=== PATIENT | male | born 1950 | race Caucasian/White ===

== ENCOUNTER 2018-02-22 09:00 | Inpatient (IN) | payer OTHER, MEDICARE ==
[2018-02-22 09:43] VITALS: BMI 31.9
[2018-02-26] MEDS ORDERED: CEFAZOLIN/Water 2 GM/20 ML SYRINGE ONE (05:59)
[2018-02-26] MEDS ORDERED: Vancomycin HCl 1.5 GM in Sodium Chloride 0.9% 250 ML 300 ML IVPB SCH ×2 (06:00→18:00)
[2018-02-26] MEDS ORDERED: Sodium Chloride 0.9% 100 ML ONE (06:00)
[2018-02-26] MEDS ORDERED: Fentanyl 100 MCG/2 ML VIAL ONE ×5 (06:14→11:07)
[2018-02-26] MEDS ORDERED: Midazolam HCl 2 mg/2 ml Vial ONE ×2 (06:14→06:37)
[2018-02-26] MEDS ORDERED: Bupivacaine PF 0.5% 30 ML VIAL ONE (06:47)
--- NOTE | 2018-02-26 11:04 | OP ---
DATE OF PROCEDURE: 02/26/2018 PREOPERATIVE DIAGNOSIS: Left knee failed unicompartmental knee replacement. POSTOPERATIVE DIAGNOSIS: Left knee failed unicompartmental knee replacement. PROCEDURE PERFORMED: Conversion of left knee unicompartmental knee replacement to left knee total kn ee replacement including removal of hardware. SURGEON: Butch Adames M.D. HELP DESK OPERATOR: Miguel Leahy M.D. BLOOD LOSS: Minimal. COMPLICATIONS: None. DISPOSITION: He did go to recovery room in stable condition. ANESTHESIA: He did have a preoperative block as well as a general anesthetic. IMPLANTS: A [employer] Triathlon knee system, the femur a size 5 cruciate retaining. We used a size 5 baseplate with a 50 mm stem. We did use a 5 mm medial augment and our poly was a 16 mm CS poly X3 in sert. The patella was a 32 x 10 asymmetric X3 patella. CONDITION: He did go to the recovery room in stable condition. INDICATIONS: A 67-year-old male who comes in complaining of left knee pain. He had a unicompartment al knee replacement done about 4 years ago and has never been without discomfort. After appropriate consent forms were explained and signed, he was taken back to the operating room at this time was giv en general anesthetic. Once anesthesia was appropriate, the left lower extremity was prepped and mansi ped in the standard surgical fashion. Limb was exsanguinated, tourniquet was taken up to 300 mmHg. The 10 blade was used then, used the previous incision, extending this proximally. Bovie was used to coagulate any brisk venous bleeding. New blade was used to make a medial parapatellar arthrotomy. At this time, we were able to dissect soft tissue medially to gain access towards the medial corner. Excess fat pad was removed. Patella was everted, knee was flexed up. At this time, we attached the navigation jig onto the femur. We navigated the femur with the metal in place and went to make our cut. We did make the lateral femoral condyle cut. We were unable to do the medial femoral condyle s econdary to the metal being in place and at this time a reciprocating saw and osteotomes were used to remove this femur. Once that was done, the medial cut was then made. We then went ahead and placed our sizing jig onto the knee, sized it to be 5, a 4-in-1 cutting block was then applied and pinned. Anterior, posterior, and chamfer cuts were made. This gave a nice preparation of our femur with no significant areas that needed any type of metal augmentation. Once this was done, we then gained acc ess to our tibia. We then again navigated our tibia with the plastic in place and set our jig, takin g 9 mm off the affected side which was 0 medially. We then made our lateral cut and this took it moise n just to the level of the plastic not even the level of the metal. We then added 4 mm to this and w e then had to use a reciprocating saw and osteotome to remove our metal and plastic from the uni. Ag ain, at this time, we then had removed 13 laterally and more than that medially. We then removed loo se bony debris. The back of the femur was evaluated and there was some small osteophytes that were r emoved with a rongeur. Otherwise, no significant bony resection was needed posteriorly. Any remaini ng meniscus was removed as well as soft tissue. At this time, we trialed with the 5 mm augment and a size 5 baseplate. We pinned it. Once we got to the appropriate rotation and placed our femur in. We then trialed up to a 16, the 16 I felt gave us the best stability anterior and posterior throughou t full range of motion as well as medial and lateral, and at this time, we then used two towel clips and a saw to cut our patella, the 32 mm trial was used and it sat nicely in the trochlear groove. We then removed the patella, flexed the knee up again drilled our femoral lug nuts, removed our femur, gained access to our tibia and at this time we punched and reamed for the boss and then reamed for th e 50 mm stem. At this time, all components were removed and the knee was thoroughly irrigated and dr delgado while cement was mixed on the back table. We did next 2 batches of cement. We then placed a jason ent restrictor in the tibial canal. We then applied our cement and our real tibia with the 5 mm augm ent. Once all excess bone cement was removed, the plastic was inserted and then the femur. This was then held out in full extension while the cement dried. All excess bone cement being removed from o ff the femur, tibia, and the patella. We thoroughly irrigated and dried. We then used multiple inte rrupted #2 Vicryls followed by a running large Stratafix, the 0 Stratafix, the 3-0 Stratafix and Surg iSeal skin glue on top. Once the glue had dried, a bulky sterile dressing was applied to the left lo wer extremity. Tourniquet was let down. Toes pinked up nicely. The patient was awakened. He was t aken to the recovery room in stable condition. All counts were correct at the end of the case. He d id receive preoperative IV antibiotics.
[2018-02-26] MEDS ORDERED: Zolpidem Tartrate 5 MG TAB PO PRN ×2 (12:32→13:15)
[2018-02-26] MEDS ORDERED: HYDROcodone/Acetaminophen 10/325 mg Tablet PO PRN ×3 (12:32→13:01)
[2018-02-26] MEDS ORDERED: Promethazine HCl 25 MG/ML VIAL IM PRN ×2 (12:32→13:15)
[2018-02-26] MEDS ORDERED: Ropivacaine HCl/PF 250 ML in Premix Bag 1 BAG NERVE BLCK SCH (12:32)
[2018-02-26] MEDS ORDERED: Ondansetron HCl/PF 4 MG/2 ML Vial IVP PRN ×2 (12:32→13:15)
[2018-02-26] MEDS ORDERED: traMADol HCl 50 MG TAB PO PRN ×3 (12:32→13:02)
[2018-02-26] MEDS ORDERED: Fentanyl 100 MCG/2 ML VIAL IV PRN (12:33)
[2018-02-26] MEDS ORDERED: Ropivacaine 0.5% HCl/PF (150 MG/30 ML VIAL) ONE (12:55)
[2018-02-26] MEDS ORDERED: Ondansetron HCl/PF 4 MG/2 ML Vial ONE (13:02)
[2018-02-26] MEDS ORDERED: Lidocaine 1% PF 5 ML VIAL ONE (13:02)
[2018-02-26] MEDS ORDERED: PROPOFOL 200 MG/20 ML VIAL ONE (13:02)
[2018-02-26] MEDS ORDERED: Metoclopramide HCl 10 MG/2 ML VIAL ONE (13:02)
[2018-02-26] MEDS ORDERED: Bupivacaine 0.25% HCL 30 ML VIAL ONE (13:02)
[2018-02-26] MEDS ORDERED: Fentanyl 100 MCG/2 ML VIAL SLOW IVP PRN ×2 (13:03)
[2018-02-26] MEDS ORDERED: Acetaminophen 325 MG TAB PO PRN (13:15)
[2018-02-26] MEDS ORDERED: diphenhydrAMINE 25 MG CAP PO PRN (13:15)
[2018-02-26] MEDS ORDERED: Acetaminophen 1,000 MG in Premix Bag 1 BAG IVPB SCH (13:15)
[2018-02-26] MEDS: HYDROcodone/Acetaminophen 10/325 mg Tablet PO PRN ×2 (13:40→20:43)
[2018-02-26] MEDS ORDERED: CEFAZOLIN/Water 2 GM/20 ML SYRINGE SLOW IVP SCH (14:00)
[2018-02-26] MEDS: Ketorolac Tromethamine 30 MG/ML VIAL IM/IV SCH ×2 (14:25→20:44)
[2018-02-26] MEDS: Sodium Chloride 0.9% 1,000 ML IV SCH (14:25)
--- NOTE | 2018-02-26 14:51 | RAD ---
TWO VIEWS OF LEFT KNEE: INDICATION: Postop. COMPARISON: None. FINDINGS: There is a left total knee prosthesis that projects in the expected position. A small focus of methy l methacrylate is suspected within the posterolateral aspect of the knee joint measuring about 7.6 mm . There is intraarticular and paraarticular gas consistent with the patient's recent postop state. IMPRESSION: 1. Left total knee prosthesis. 2. Small focus of density within posterolateral aspect of the knee joint suspicious for a small focu s of polymethyl methacrylate. This may be in the region of the popliteal hiatus. POS: [facility]
[2018-02-26] MEDS ORDERED: Polyethylene Glycol 3350 17 GM Packet PO PRN (15:47)
--- NOTE | 2018-02-26 15:49 | PDOC.PN ---
- Subjective Encounter Start Date: 02/26/18 Encounter Start Time: 15:47 Patient seen and examined for med mngt. No CP/SOB/Palpitations. Follows Dr Gonzales. - Objective MAR Reviewed: Yes Vital Signs & Weight: Weight Weight 210 lb Additional Labs: Laboratory Tests 02/22/18 02/22/18 10:10 10:10 Hgb 14.0 Hct 42.5 Sodium 138 Potassium 4.2 BUN 15 Creatinine 0.83 EKG Reviewed by me: Yes ([employer] RBBB) Phys Exam - Physical Examination Constitutional: NAD Respiratory: no wheezing, no rhonchi Cardiovascular: RRR, no rub Gastrointestinal: soft, non-tender, positive bowel sounds Musculoskeletal: no edema Neurological: moves all 4 limbs Dx/Plan - Plan DVT proph w/SCDs IMPRESSION: 1. HTN 2. DM2 3. HLD 4. CAD s/p CABG 2015 5. Obesity BMI 31.9 PLAN: DC Metoprolol - Patient is currently not on Metoprolol at home Change Amlodipine to 5 mg BID (Patient takes 10 md daily) Cont Metformin - No need for sliding scale Cont Statins Cont ASA Cont other meds as below Thank you for this consultation. Will follow PRN. Full code. DPOA - spouse Review of Systems - Review of Systems Respiratory: negative: Cough, Dry, Shortness of Breath, Hemoptysis, SOB with Excertion, Pleuritic Pain, Sputum, Wheezing Cardiovascular: negative: chest pain, palpitations, orthopnea, paroxysmal nocturnal dyspnea, edema, light headedness, other Gastrointestinal: negative: Nausea, Vomiting, Abdominal Pain, Diarrhea, Constipation, Melena, Hematochezia, Other - Medications/Allergies Allergies/Adverse Reactions: Allergies Allergy/AdvReac Type Severity Reaction Status Date / Time No Known Allergies Allergy Verified 02/22/18 09:43 Medications: Current Medications Acetaminophen (Tylenol) 650 mg PO Q4H PRN PRN Reason: Headache/Fever or Pain Hydrocodone Bitart/Acetaminophen ([place] 10/325) 1 tab PO Q4H PRN PRN Reason: Pain (1-3) Hydrocodone Bitart/Acetaminophen ([place] 10/325) 2 tab PO Q4H PRN PRN Reason: PAIN (4-6) Last Admin: 02/26/18 13:40 Dose: 2 tab Hydrocodone Bitart/Acetaminophen ([place] 10/325) 1 tab PO Q4H PRN PRN Reason: Mild Pain (1-3) Hydrocodone Bitart/Acetaminophen ([place] 10/325) 2 tab PO Q4H PRN PRN Reason: Moderate Pain (4-6) Amlodipine Besylate (Norvasc) 5 mg PO BID [facility] Aspirin (Aspirin Chewable) 81 mg PO BID [facility] Atorvastatin Calcium (Lipitor) 80 mg PO HS [facility] Cefazolin Sodium (Ancef) 2 gm SLOW IVP 0800,1600,2359 [facility] Stop: 02/27/18 00:00 Clonazepam (Klonopin) 1 mg PO HS [facility] Diphenhydramine HCl (Benadryl) 25 mg PO Q6H PRN PRN Reason: Itching Fenofibrate (Tricor) 145 mg PO HS [facility] Fentanyl (Sublimaze) 50 mcg IV Q1H PRN PRN Reason: SEVERE BREAKTHROUGH PAIN Fentanyl (Sublimaze) 50 mcg SLOW IVP Q30MIN PRN PRN Reason: Moderate Pain (4-6) Fentanyl (Sublimaze) 100 mcg SLOW IVP Q1H PRN PRN Reason: Severe Pain (7-10) Ferrous Gluconate (Fergon) 324 mg PO BID[facility] Fluoxetine HCl (Prozac) 40 mg PO DAILY [facility] Hydrocodone Bitartrate/Ibuprofen (Vicoprofen 7.5/200) 1 tab PO Q4H PRN PRN Reason: Mild Pain (1-3) Hydrocodone Bitartrate/Ibuprofen (Vicoprofen 7.5/200) 2 tab PO Q4H PRN PRN Reason: Moderate Pain (4-6) Ropivacaine 250 ml/ Device 250 mls @ 0 mls/hr NERVE BLCK INF [facility] Sodium Chloride (Normal Saline 0.9%) 1,000 mls @ 100 mls/hr IV .Q10H [facility] Last Admin: 02/26/18 14:25 Dose: 1,000 mls Vancomycin HCl 1.5 gm/ Sodium (Chloride) 300 mls @ 200 mls/hr IVPB 1800 [facility] Stop: 02/26/18 20:00 Acetaminophen 1,000 mg/ Device 100 mls @ 400 mls/hr IVPB NOW [facility] Stop: 02/26/18 16:15 Last Admin: 02/26/18 15:35 Dose: Not Given Iron/Minerals/Multivitamins (Theragran M) 1 tab PO DAILY [facility] Ketorolac Tromethamine (Toradol) 15 mg IM/IV Q8HR [facility] Stop: 02/28/18 14:01 Last Admin: 02/26/18 14:25 Dose: 15 mg Metformin HCl (Glucophage Xr) 1,000 mg PO QAM-WM [facility] Ondansetron HCl (Zofran) 4 mg IVP Q6H PRN PRN Reason: Nausea/Vomiting Ondansetron HCl (Zofran) 4 mg IVP Q6H PRN PRN Reason: Nausea/Vomiting Polyethylene Glycol (Miralax) 17 gm PO DAILY PRN PRN Reason: Constipation Promethazine HCl (Phenergan) 12.5 mg IM Q4H PRN PRN Reason: Nausea Promethazine HCl (Phenergan) 12.5 mg IM Q4H PRN PRN Reason: Nausea Quinapril HCl (Accupril) 40 mg PO DAILY [facility] Senna/Docusate Sodium (Senokot S) 2 tab PO BID [facility] Sodium Chloride (Flush - Normal Saline) 10 ml IVF Q12HR [facility] Sodium Chloride (Flush - Normal Saline) 10 ml IVF PRN PRN PRN Reason: Saline Flush Tramadol HCl (Ultram) 50 mg PO Q6H PRN PRN Reason: Mild Pain (1-3) Tramadol HCl (Ultram) 100 mg PO Q6H PRN PRN Reason: Moderate Pain 4-6 Tramadol HCl (Ultram) 100 mg PO Q6H PRN PRN Reason: Moderate Pain (4-6) Zolpidem Tartrate (Ambien) 5 mg PO HSPRN PRN PRN Reason: Insomnia Zolpidem Tartrate (Ambien) 5 mg PO HSPRN PRN PRN Reason: Insomnia
[2018-02-26] MEDS: CEFAZOLIN/Water 2 GM/20 ML SYRINGE SLOW IVP SCH (16:28)
[2018-02-26] MEDS: Atorvastatin Calcium 40 MG TAB PO SCH (20:42)
[2018-02-26] MEDS: Fenofibrate Nanocrystallized 145 MG TAB PO SCH (20:42)
[2018-02-26] MEDS: Amlodipine 5 MG TAB PO SCH (20:42)
[2018-02-26] MEDS: clonazePAM 1 MG TAB PO SCH (20:43)
[2018-02-26] MEDS ORDERED: Prevnar 13-Val Conj/PF 0.5 ML SYRINGE IM ONE (21:00)
[2018-02-27] MEDS: CEFAZOLIN/Water 2 GM/20 ML SYRINGE SLOW IVP SCH (00:30)
[2018-02-27] MEDS: HYDROcodone/Acetaminophen 10/325 mg Tablet PO PRN ×4 (04:08→22:05)
[2018-02-27 05:48] LABS: Hemoglobin 11.5 g/dL (14.0-18.0); Mean Corpuscular HGB CONC 33.1 g/dL (32.0-36.0); Mean Corpuscular Hemoglobin 32.1 pg (27.0-31.0); Mean Platelet Volume 7.4 fL (7.4-10.4); Platelet Count 182 thou/uL (130-400); RBC Distribution Width 11.9 % (11.5-14.5); Red Blood Cell (RBC) Count 3.59 mill/uL (4.70-6.10); White Blood Cell (WBC) Count 7.7 thou/uL (4.8-10.8)
[2018-02-27] MEDS: Ketorolac Tromethamine 30 MG/ML VIAL IM/IV SCH ×3 (06:47→22:00)
[2018-02-27] MEDS: Sodium Chloride 0.9% 1,000 ML IV SCH ×2 (08:13→19:18)
[2018-02-27] MEDS: metFORMIN XR 500 MG TAB PO SCH (08:46)
[2018-02-27] MEDS: FLUoxetine HCl 20 MG CAP PO SCH (08:47)
[2018-02-27] MEDS: Senokot S 8.6-50 MG TAB PO SCH ×2 (08:47→20:30)
[2018-02-27] MEDS: Amlodipine 5 MG TAB PO SCH ×2 (08:48→20:30)
[2018-02-27] MEDS: Multivitamin W/ Minerals 1 TAB PO SCH (08:49)
[2018-02-27] MEDS: Ferrous Gluconate 324 MG TAB PO SCH ×2 (08:49→17:57)
[2018-02-27] MEDS ORDERED: Amlodipine 5 MG TAB PO SCH (09:00)
[2018-02-27] MEDS ORDERED: Metoprolol Tartrate 25 MG TAB PO SCH (09:00)
[2018-02-27] MEDS: clonazePAM 1 MG TAB PO SCH (20:28)
[2018-02-27] MEDS: Fenofibrate Nanocrystallized 145 MG TAB PO SCH (20:28)
[2018-02-27] MEDS: Atorvastatin Calcium 40 MG TAB PO SCH (20:29)
[2018-02-28] MEDS: Sodium Chloride 0.9% 1,000 ML IV SCH ×2 (02:58→12:52)
[2018-02-28] MEDS: Ketorolac Tromethamine 30 MG/ML VIAL IM/IV SCH ×2 (05:42→14:08)
[2018-02-28 06:27] LABS: Hemoglobin 11.1 g/dL (14.0-18.0); Mean Corpuscular HGB CONC 33.2 g/dL (32.0-36.0); Mean Corpuscular Volume 96.4 fL (78.0-98.0); Mean Platelet Volume 7.6 fL (7.4-10.4); Platelet Count 173 thou/uL (130-400); RBC Distribution Width 11.8 % (11.5-14.5); Red Blood Cell (RBC) Count 3.49 mill/uL (4.70-6.10); White Blood Cell (WBC) Count 7.6 thou/uL (4.8-10.8)
[2018-02-28] MEDS: Senokot S 8.6-50 MG TAB PO SCH ×2 (08:17→20:29)
[2018-02-28] MEDS: Amlodipine 5 MG TAB PO SCH ×2 (08:17→20:28)
[2018-02-28] MEDS: Multivitamin W/ Minerals 1 TAB PO SCH (08:18)
[2018-02-28] MEDS: metFORMIN XR 500 MG TAB PO SCH (08:18)
[2018-02-28] MEDS: FLUoxetine HCl 20 MG CAP PO SCH (08:18)
[2018-02-28] MEDS: Ferrous Gluconate 324 MG TAB PO SCH ×2 (08:18→17:55)
[2018-02-28] MEDS: HYDROcodone/Acetaminophen 10/325 mg Tablet PO PRN ×4 (09:41→22:57)
[2018-02-28] MEDS: clonazePAM 1 MG TAB PO SCH (20:27)
[2018-02-28] MEDS: Atorvastatin Calcium 40 MG TAB PO SCH (20:27)
[2018-02-28] MEDS: Fenofibrate Nanocrystallized 145 MG TAB PO SCH (20:28)
[2018-02-28] MEDS ORDERED: hydrALAZINE 20 MG/ML VIAL SLOW IVP PRN (22:07)
[2018-03-01] MEDS: Sodium Chloride 0.9% 1,000 ML IV SCH ×2 (00:53→09:29)
[2018-03-01 05:44] LABS: Hemoglobin 11.3 g/dL (14.0-18.0); Mean Corpuscular Hemoglobin 31.6 pg (27.0-31.0); Mean Corpuscular Volume 95.8 fL (78.0-98.0); Mean Platelet Volume 7.1 fL (7.4-10.4); Platelet Count 191 thou/uL (130-400); RBC Distribution Width 11.5 % (11.5-14.5); Red Blood Cell (RBC) Count 3.57 mill/uL (4.70-6.10); White Blood Cell (WBC) Count 7.6 thou/uL (4.8-10.8)
[2018-03-01] MEDS: HYDROcodone/Acetaminophen 10/325 mg Tablet PO PRN ×2 (05:58→12:24)
[2018-03-01] MEDS: metFORMIN XR 500 MG TAB PO SCH (08:43)
[2018-03-01] MEDS: FLUoxetine HCl 20 MG CAP PO SCH (08:43)
[2018-03-01] MEDS: Ferrous Gluconate 324 MG TAB PO SCH (08:43)
[2018-03-01] MEDS: Senokot S 8.6-50 MG TAB PO SCH (08:43)
[2018-03-01] MEDS ORDERED: Amlodipine 10 MG TAB PO SCH (09:00)
[2018-03-01] MEDS: Multivitamin W/ Minerals 1 TAB PO SCH (09:23)
[2018-03-01 12:00] VITALS: BP 170/76; TEMP 99.2
== END 2018-03-01 12:51 | disposition home or self-care (01) | DRG 465 ==
LOC: SURG A 02-26 05:42
PROVIDERS: ADMIT Orthopaedic Surgery; ATTEND Orthopaedic Surgery
PROC: 0SRD0J9 Replacement of Left Knee Joint with Synthetic Substitute, Cemented, Open Approach (ICD-10-PCS; principal; 2018-02-26)
PROC: 0SPC0JZ Removal of Synthetic Substitute from Right Knee Joint, Open Approach (ICD-10-PCS; 2018-02-26)
DX: T84.093A Other mechanical complication of internal left knee prosthesis, initial encounter (principal); M17.12 Unilateral primary osteoarthritis, left knee; I10 Essential (primary) hypertension; E11.9 Type 2 diabetes mellitus without complications; E78.00 Pure hypercholesterolemia, unspecified; I25.10 Atherosclerotic heart disease of native coronary artery without angina pectoris; E66.9 Obesity, unspecified; Z68.31 Body mass index [BMI] 31.0-31.9, adult; Z95.1 Presence of aortocoronary bypass graft
CPT/HCPCS: 36415; 36416; 85027; 90471; 90662; 90670; C1713; C1776; G0008; G0009; G8978-GP-CK; G8979-GP-CI; J1885; J2001; J2250; J2405; J2704; J2765; J2795; J3010; J3370; J7050; S0020

== ENCOUNTER 2018-02-22 09:36 | Outpatient (CLI) | payer OTHER, MEDICARE ==
[2018-02-22 10:53] LABS: #Eosinphils 0.1 thou/uL (0.0-0.7); #Lymphocytes 1.3 thou/uL (1.20-3.40); #Monocytes 0.4 thou/uL (0.11-0.59); #Neutrophils 3.3 thou/uL (1.40-6.50); %Basophils 0.9 % (0.0-1.0); %Eosinophils 2.3 % (0.0-10.0); %Lymphocytes 25.6 % (21.0-51.0); %Monocytes 6.8 % (0.0-10.0); %Neutrophils 64.3 % (42.0-75.0); Mean Corpuscular HGB CONC 32.9 g/dL (32.0-36.0); Mean Corpuscular Volume 94.1 fL (78.0-98.0); Mean Platelet Volume 7.4 fL (7.4-10.4); Platelet Count 223 thou/uL (130-400); RBC Distribution Width 11.7 % (11.5-14.5); Red Blood Cell (RBC) Count 4.51 mill/uL (4.70-6.10); White Blood Cell (WBC) Count 5.2 thou/uL (4.8-10.8)
[2018-02-22 11:02] LABS: Bilirubin Negative (Negative); Blood, Urine Negative (Negative); Clarity CLEAR (Clear); Glucose, Urine (Dipstick) Negative (Negative); Leukocyte Negative (Negative); Nitrite Negative (Negative); Protein, Urine (Dipstick) Negative (Neg-Trace); Prothrombin Time 12.9 SEC (12.0-14.7); Specific Gravity, Urine 1.014 (1.002-1.036); Urobilinogen 0.2 mg/dL (0.2-1.0); pH, Urine 6.5 (5.0-9.0)
[2018-02-22 11:04] LABS: Bacteria/HPF None Seen HPF (None Seen); Hyaline Casts/LPF 0-3 HYALINE CAST LPF (0-3 Hyaline); RBC/HPF 0-3 HPF (0-3); Squamous Epithelial None Seen HPF (0-3); WBC/HPF None Seen HPF (0-3)
[2018-02-22 11:09] LABS: Anion Gap 12 mmol/L (10-20); BUN (Urea Nitrogen) 15 mg/dL (8.4-25.7); Calc. Creatinine Clearance 0 mL/min (70-130); Calcium 9.2 mg/dL (7.8-10.44); Carbon Dioxide 25 mmol/L (23-31); Chloride 105 mmol/L (98-107); Estimated GFR-MDRD Greater than 90; Glucose 90 mg/dL (80-115); Potassium 4.2 mmol/L (3.5-5.1); Sodium 138 mmol/L (136-145)
== END 2018-02-22 09:37 | disposition home or self-care (01) ==
LOC: LABBT 09:36
PROVIDERS: ATTEND Orthopaedic Surgery
DX: Z01.818 Encounter for other preprocedural examination (principal); T84.093A Other mechanical complication of internal left knee prosthesis, initial encounter
CPT/HCPCS: 80048; 81001; 85025; 85610; 86850; 86900; 86901; 87081; 93005; 93010

== ENCOUNTER 2018-09-09 10:35 | Outpatient (CLI) | payer OTHER ==
--- NOTE | 2018-09-09 11:06 | ULT ---
VENOUS DUPLEX SONOGRAM LEFT LOWER EXTREMITY: HISTORY: Left leg pain and edema. FINDINGS: The left common femoral vein and greater saphenous junction were evaluated along with the femoral, fe moral, deep femoral, popliteal, and posterior tibial veins. There is good color and spectral Doppler flow, compression, and augmentation. IMPRESSION: No sonographic evidence of deep vein thrombosis within the left lower extremity. POS: [facility]
== END 2018-09-09 10:36 | disposition home or self-care (01) ==
LOC: SCSULT 10:35
PROVIDERS: ATTEND Orthopaedic Surgery
DX: M79.662 Pain in left lower leg (principal); M79.89 Other specified soft tissue disorders; Z96.652 Presence of left artificial knee joint

== ENCOUNTER 2023-06-15 15:21 | Emergency (ER) | payer MEDICARE ==
[~2023-06-15 15:21] MED LIST: Iopamidol-370 76% 500 ML MDV (1 ML CHARGE) ONE
[2023-06-15 16:07] LABS: #Eosinphils 0.1 thou/uL (0.0-0.7); #Monocytes 0.5 thou/uL (0.11-0.59); #Neutrophils 3.1 thou/uL (1.40-6.50); %Basophils 0.8 % (0.0-1.0); %Monocytes 10.6 % (0.0-10.0); %Neutrophils 62.4 % (42.0-75.0); Hematocrit 44.5 % (42.0-52.0); Hemoglobin 15.4 g/dL (14.0-18.0); Mean Corpuscular HGB CONC 34.6 g/dL (32.0-36.0); Mean Corpuscular Hemoglobin 32.9 pg (27.0-31.0); Mean Corpuscular Volume 95.1 fl (78.0-98.0); Mean Platelet Volume 9.5 fL (7.4-10.4); Platelet Count 222 10x3/uL (130-400); RBC Distribution Width 12.5 % (11.5-14.5); Red Blood Cell (RBC) Count 4.68 mill/uL (4.70-6.10)
[2023-06-15 16:38] LABS: ALT (SGPT) 69 U/L (8-55); AST (SGOT) 70 U/L (5-34); Albumin 4.4 g/dL (3.4-4.8); Alkaline Phosphatase 74 U/L (40-110); Anion Gap 14 mmol/L (10-20); BUN (Urea Nitrogen) 12 mg/dL (8.4-25.7); Bilirubin, Total 0.6 mg/dL (0.2-1.2); Calc. Creatinine Clearance 0 mL/min (70-130); Calcium 9.8 mg/dL (7.8-10.44); Carbon Dioxide 27 mmol/L (23-31); Chloride 102 mmol/L (98-107); Estimated GFR 67; Globulin 3.8 g/dL (2.4-3.5); Glucose 117 mg/dL (83-110); Lipase 42 U/L (8-78); Potassium 5.3 mmol/L (3.5-5.1); Protein, Total 8.2 g/dL (5.8-8.1); Sodium 138 mmol/L (136-145); Troponin I Less than 0.010 ng/mL (< 0.028)
== END 2023-06-15 18:45 | disposition home or self-care (01) ==
LOC: ERS 15:21
DX: M54.2 Cervicalgia (principal); R91.1 Solitary pulmonary nodule; I25.10 Atherosclerotic heart disease of native coronary artery without angina pectoris; I25.2 Old myocardial infarction; I10 Essential (primary) hypertension; Z79.82 Long term (current) use of aspirin; Z79.899 Other long term (current) drug therapy
CPT/HCPCS: 70498; 71045; 80053; 83690; 83880; 84484; 85025; 93005; Q9967